=== PATIENT | male | born 1975 | race Caucasian/White ===

== ENCOUNTER 2022-07-10 12:38 | Emergency (ER) | payer SELFPAY ==
[~2022-07-10] VITALS: Ht 167.6 cm; Wt 59.0 kg
[2022-07-10] MEDS ORDERED: PRED20 PO (15:26)
== END 2022-07-10 15:48 | disposition left against medical advice (07) ==
LOC: ER 12:38
DX: L23.9 Allergic contact dermatitis, unspecified cause (principal); F17.200 Nicotine dependence, unspecified, uncomplicated
CPT/HCPCS: A9270; J1100

== ENCOUNTER 2023-01-11 11:43 | Emergency (ER) | payer OTHER ==
[~2023-01-11] VITALS: Ht 167.6 cm; Wt 63.5 kg
[~2023-01-11 11:43] MED LIST: PRED20 PO
[2023-01-11 11:53] VITALS: BP 117/71
[2023-01-11] MEDS ORDERED: FAMO20 PO (13:14)
[2023-01-11] MEDS ORDERED: PRED20 PO (13:14)
[2023-01-11] MEDS ORDERED: AMOCLA875 PO (13:20)
== END 2023-01-11 13:28 | disposition home or self-care (01) ==
LOC: ER 11:43
DX: L25.9 Unspecified contact dermatitis, unspecified cause (principal); K02.9 Dental caries, unspecified; Z79.52 Long term (current) use of systemic steroids; F17.200 Nicotine dependence, unspecified, uncomplicated
CPT/HCPCS: A9270; J1100